=== PATIENT | female | born 1970 | race Caucasian/White ===

== ENCOUNTER 2016-11-12 18:42 | Emergency (ER) | payer OTHER ==
[~2016-11-12] VITALS: Ht 160 cm; Wt 80.1 kg
[~2016-11-12 18:42] MED LIST: ONDA4TAB7 SL
[2016-11-12 18:54] VITALS: TEMP 37.2; Ht 160 cm; Wt 80.1 kg
[2016-11-12] MEDS ORDERED: SODIUM CHLORIDE 0.9% 1000ML 1,000 ML IV STA (19:17)
[2016-11-12] MEDS ORDERED: KETOROLAC TROMETHAMINE 30 MG/ML VIAL IV STA (19:17)
[2016-11-12] MEDS ORDERED: ONDANSETRON INJ 2 MG/ML 2 ML VIAL IV STA (19:17)
[2016-11-12] MEDS ORDERED: FENTANYL CITRATE INJ 50 MCG/1 ML 2 ML VIAL IV PRN (19:30)
[2016-11-12 19:53] LABS: BASO % 0.1 %; BASO ABS # 0.03 K/uL (0-0.2); COMPLETE YES; EOS % 0.3 %; HEMATOCRIT 45.4 % (37-47); IG% 0.3 %; LYMPH % 4.8 %; MEAN CELL VOLUME 91.5 fL (80-100); MEAN CORPUSCULAR HEMOGLOBIN 33.3 pg (25-34); MEAN CORPUSCULAR HGB CONC 36.3 g/dl (32-36); MEAN PLATELET VOLUME 10.4 fL (7.4-10.4); MONO % 7.1 %; NEUT % 87.4 %; PLATELET COUNT 301 K/uL (130-400); RED BLOOD COUNT 4.96 M/uL (4.2-5.4); WHITE BLOOD COUNT 20.62 K/uL (4.8-10.8)
[2016-11-12 20:08] LABS: URINE APPEARANCE CLOUDY (CLEAR); URINE BILIRUBIN NEG (NEG); URINE COLOR YELLOW; URINE EPITHELIAL CELL AUTO >30 /lpf (0-5); URINE NITRITE NEG (NEG); URINE SPECIFIC GRAVITY 1.032 (1.000-1.030); UROBILINOGEN NEG (NEG); ZZUR CULT IF INDIC CLEAN CATCH YES
[2016-11-12 20:09] LABS: ALT/SGPT 15 U/L (12-78); BLOOD UREA NITROGEN 14 mg/dl (7-18); BUN/CREATININE RATIO 17.6 (10-20); CALCIUM 9.8 mg/dl (8.5-10.1); CARBON DIOXIDE 17 mmol/L (21-32); CHLORIDE 108 mmol/L (98-107); CREATININE 0.82 mg/dl (0.60-1.20); GLUCOSE 92 mg/dl (70-99); POTASSIUM 3.9 mmol/L (3.5-5.1); SODIUM 141 mmol/L (136-145)
[2016-11-12 20:12] LABS: ALKALINE PHOSPHATASE 87 U/L (45-117); AST/SGOT 11 U/L (15-37)
--- NOTE | 2016-11-12 20:12 | DIAGNOSTIC IMAGING REPORT ---
ABDOMEN AND PELVIS CT WITHOUT CONTRAST CT DOSE: 579.02 mGy.cm HISTORY: Pain ABDOMINAL PAIN/GI TECHNIQUE: Multiaxial CT images of the abdomen and pelvis were performed without contrast. COMPARISON STUDY: None. FINDINGS: The lung bases are clear. The unenhanced liver, spleen, gallbladder, pancreas, kidneys, and adrenal glands are within normal limits. No bowel wall thickening or obstruction. The pelvic organs are unremarkable. No suspicious lytic or blastic osseous lesions. The appendix is suboptimally seen no there is no significant right lower quadrant or pericecal inflammatory process. No evidence for an obstructing urinary tract calculus. Bladder is midline. IMPRESSION: No significant abnormality identified within the abdomen or pelvis. Electronically signed by: Sekou Lee M.D. 11/12/2016 8:11 PM Dictated Date/Time: 11/12/2016 8:05 PM
[2016-11-12 20:14] LABS: MANUAL MICROSCOPIC REQUIRED? NO; REVIEW REQ? YES
[2016-11-12 20:33] LABS: URINE MUCUS PRESENT (NONE PRSENT)
--- NOTE | 2016-11-12 20:52 | DIAGNOSTIC IMAGING REPORT ---
ABDOMEN 2VIEW W/PA CHEST RTN CLINICAL HISTORY: ABDOMINAL PAIN/GI nausea COMPARISON STUDY: No previous studies for comparison. FINDINGS: Lungs are considered clear. No evidence for cardiac enlargement. Mild gastric distention. Nonobstructive bowel pattern. IMPRESSION: Mild gastric distention. Otherwise negative study Electronically signed by: Sekou Lee M.D. 11/12/2016 8:51 PM Dictated Date/Time: 11/12/2016 8:50 PM
--- NOTE | 2016-11-12 21:11 | EMERGENCY ROOM VISIT NOTE ---
History Report prepared by Ryan: Tita Zhang Under the Supervision of: Dr. Kavin Washburn D.O. First contact with patient: 19:12 Chief Complaint: GI ASSESSMENT Stated Complaint: BLOATING, DIARRHEA, STOMACH PAIN, VOMITING History of Present Illness The patient is a 46 year old female who presents to the Emergency Room for a GI assessment. The patient felt fine yesterday and had normal bowel movements yesterday. This morning the patient felt fine when she woke up. She exercised and ate a bowl of [employer] cereal. About 1 hour after eating she started feeling burning pain in her throat. She became nauseated and had 1 episode of vomiting. Twenty minutes later she developed upper abdominal pain and abdominal bloating. This has persisted throughout the day. She states, "I feel really full , like I have this enormous weight in my belly." She has had multiple bowel movements today that she states are just water. The patient states that her abdominal pain is waxing and waning. She feels heaviness in her chest and she still feels nauseated. She has never had symptoms like this before. The patient denies any history of abdominal surgeries or any chance of . She was recently on antibiotics for strep throat. Source of History: patient Onset: this morning Position: abdomen Quality: other (bloating) Timing: constant Modifying Factors (Worsening): eating Associated Symptoms: + chest pain (heaviness), + diarrhea (watery), + nausea , + vomiting Review of Systems See HPI for pertinent positives & negatives. A total of 10 systems reviewed and were otherwise negative. Past Medical & Surgical Medical Problems: (1) Knee pain Surgical Problems: (1) History of knee surgery Family History No pertinent history stated. Social History Smoking Status: Never Smoker Alcohol Use: none Drug Use: none Marital Status: Housing Status: lives with family Occupation Status: employed Current/Historical Medications No Active Prescriptions or Reported Meds Allergies Coded Allergies: No Known Allergies (Unverified , 11/12/16) Physical Exam Vital Signs Date Time Temp Pulse Resp B/P Pulse Ox O2 Delivery O2 Flow Rate FiO2 11/12/16 21:00 102 20 161/111 99 Room Air 11/12/16 18:54 37.2 113 18 156/106 98 Room Air Physical Exam CONSTITUTIONAL/VITAL SIGNS: Reviewed / noted above. GENERAL: Non-toxic in appearance. INTEGUMENTARY: Warm, dry, and [employer]. HEAD: Normocephalic. EYES: without scleral icterus or trauma. ENT/OROPHARYNX: clear and moist. LYMPHADENOPATHY/NECK: Is supple without lymphadenopathy or meningismus. RESPIRATORY: Lungs clear and equal. CARDIOVASCULAR: Regular rate and rhythm. GI/ABDOMEN: Soft distended with mild epigastric tenderness. No organomegaly or pulsatile mass. No rebound or guarding. Decreased bowel sounds. EXTREMITIES: Warm and well perfused. BACK: No CVA tenderness. NEUROLOGICAL: Intact without focal deficits. PSYCHIATRIC: normal affect. MUSCULOSKELETAL: Normally developed with good muscle tone. Medical Decision & Procedures ER Provider Diagnostic Interpretation: Radiology results as stated below per my review and radiologist interpretation: ABDOMEN 2VIEW W/PA CHEST RTN CLINICAL HISTORY: ABDOMINAL PAIN/GI nausea COMPARISON STUDY: No previous studies for comparison. FINDINGS: Lungs are considered clear. No evidence for cardiac enlargement. Mild gastric distention. Nonobstructive bowel pattern. IMPRESSION: Mild gastric distention. Otherwise negative study Electronically signed by: Sekou Lee M.D. 11/12/2016 8:51 PM Dictated Date/Time: 11/12/2016 8:50 PM ABDOMEN AND PELVIS CT WITHOUT CONTRAST CT DOSE: 579.02 mGy.cm HISTORY: Pain ABDOMINAL PAIN/GI TECHNIQUE: Multiaxial CT images of the abdomen and pelvis were performed without contrast. COMPARISON STUDY: None. FINDINGS: The lung bases are clear. The unenhanced liver, spleen, gallbladder, pancreas, kidneys, and adrenal glands are within normal limits. No bowel wall thickening or obstruction. The pelvic organs are unremarkable. No suspicious lytic or blastic osseous lesions. The appendix is suboptimally seen no there is no significant right lower quadrant or pericecal inflammatory process. No evidence for an obstructing urinary tract calculus. Bladder is midline. IMPRESSION: No significant abnormality identified within the abdomen or pelvis. Electronically signed by: Sekou Lee M.D. 11/12/2016 8:11 PM Dictated Date/Time: 11/12/2016 8:05 PM Laboratory Results 11/12/16 19:40 Red Blood Count 4.96, Mean Corpuscular Volume 91.5, Mean Corpuscular Hemoglobin 33.3, Mean Corpuscular Hemoglobin Concent 36.3, Mean Platelet Volume 10.4, Neutrophils (%) (Auto) 87.4, Lymphocytes (%) (Auto) 4.8, Monocytes (%) (Auto) 7.1, Eosinophils (%) (Auto) 0.3, Basophils (%) (Auto) 0.1, Neutrophils # (Auto) 17.99, Lymphocytes # (Auto) 1.00, Monocytes # (Auto) 1.47, Eosinophils # (Auto) 0.07, Basophils # (Auto) 0.03 11/12/16 19:40 Test 11/12/16 19:40 11/12/16 19:50 White Blood Count 20.62 K/uL (4.8-10.8) Red Blood Count 4.96 M/uL (4.2-5.4) Hemoglobin 16.5 g/dL (12.0-16.0) Hematocrit 45.4 % (37-47) Mean Corpuscular Volume 91.5 fL (80-100) Mean Corpuscular Hemoglobin 33.3 pg (25-34) Mean Corpuscular Hemoglobin Concent 36.3 g/dl (32-36) Platelet Count 301 K/uL (130-400) Mean Platelet Volume 10.4 fL (7.4-10.4) Neutrophils (%) (Auto) 87.4 % Lymphocytes (%) (Auto) 4.8 % Monocytes (%) (Auto) 7.1 % Eosinophils (%) (Auto) 0.3 % Basophils (%) (Auto) 0.1 % Neutrophils # (Auto) 17.99 K/uL (1.4-6.5) Lymphocytes # (Auto) 1.00 K/uL (1.2-3.4) Monocytes # (Auto) 1.47 K/uL (0.11-0.59) Eosinophils # (Auto) 0.07 K/uL (0-0.5) Basophils # (Auto) 0.03 K/uL (0-0.2) RDW Standard Deviation 43.6 fL (36.4-46.3) RDW Coefficient of Variation 13.2 % (11.5-14.5) Immature Granulocyte % (Auto) 0.3 % Immature Granulocyte # (Auto) 0.06 K/uL (0.00-0.02) Anion Gap 16.0 mmol/L (3-11) Est Creatinine Clear Calc Drug Dose 85.9 ml/min Estimated GFR () 99.5 Estimated GFR (Non- 85.8 BUN/Creatinine Ratio 17.6 (10-20) Calcium Level 9.8 mg/dl (8.5-10.1) Total Bilirubin 0.5 mg/dl (0.2-1) Direct Bilirubin < 0.1 mg/dl (0-0.2) Aspartate Amino Transf (AST/SGOT) 11 U/L (15-37) Alanine Aminotransferase (ALT/SGPT) 15 U/L (12-78) Alkaline Phosphatase 87 U/L (45-117) Total Protein 8.5 gm/dl (6.4-8.2) Albumin 4.1 gm/dl (3.4-5.0) Lipase 99 U/L (73-393) Urine Color YELLOW Urine Appearance CLOUDY (CLEAR) Urine pH 5.0 (4.5-7.5) Urine Specific [place] 1.032 (1.000-1.030) Urine Protein NEG (NEG) Urine Glucose (UA) NEG (NEG) Urine Ketones 3+ (NEG) Urine Occult Blood 3+ (NEG) Urine Nitrite NEG (NEG) Urine Bilirubin NEG (NEG) Urine Urobilinogen NEG (NEG) Urine Leukocyte Esterase TRACE (NEG) Urine WBC (Auto) 1-5 /hpf (0-5) Urine RBC (Auto) 5-10 /hpf (0-4) Urine Hyaline Casts (Auto) 1-5 /lpf (0-5) Urine Epithelial Cells (Auto) >30 /lpf (0-5) Urine Bacteria (Auto) 1+ (NEG) Urine Mucus PRESENT (NONE PRSENT) Urine Test NEG (NEG) Laboratory results as stated above per my review. Medications Administered Medications (Trade) Dose Ordered Sig/Irving Route Start Time Stop Time Status Last Admin Dose Admin Sodium Chloride (Nss 1000ml) 1,000 ml @ 999 mls/hr Q1H1M STAT IV 11/12/16 19:17 11/12/16 20:17 DC 11/12/16 19:46 999 MLS/HR Ondansetron HCl (Zofran Inj) 4 mg NOW STAT IV 11/12/16 19:17 11/12/16 19:20 DC 11/12/16 19:47 4 MG Fentanyl Citrate (Fentanyl Inj) 50 mcg Q1H PRN IV 11/12/16 19:30 11/26/16 19:29 11/12/16 21:11 50 MCG Ketorolac Tromethamine (Toradol Inj) 30 mg NOW STAT IV 11/12/16 19:17 11/12/16 19:20 DC 11/12/16 19:47 30 MG ED Course 1911: Previous medical records were reviewed. The patient was evaluated in room B12B. A complete history and physical examination was performed. 1916: Toradol 30 mg IV, Zofran 4 mg IV, NSS 1000 ml @ 999 mls/hr IV 1929: Fentanyl Citrate 50 mcg IV - PRN 2111: I reassessed the patient at this time. She is feeling better and resting comfortably. I discussed the results and treatment plan with the patient. I answered all pertaining questions that she had. She expressed understanding and verbalized agreement. The patient will be discharged home. Medical Decision Differential considered: pancreatitis, hepatitis, or acute cholecystitis, AAA, UTI, pyelonephritis, kidney stones, appendicitis, diverticulitis, shingles, bowel obstruction mesenteric ischemia, intussusception,hernia, ovarian torsion, ruptured ovarian cyst, ectopic , . This is a 46-year-old female who presents to the ED with a chief complaint of abdominal bloating and distention as well as some intermittent abdominal cramps. Further details noted above. Her symptoms started about 1 hour after eating a bowl of cereal at 9:30 AM. She had one episode of vomiting. She states that she had an episode of watery diarrhea this afternoon. Her exam reveals bloated abdomen is mildly tender in epigastric area. CT scan her abdomen and pelvis did not show any acute process. A chest x-ray was negative for acute disease. Abdominal x-ray reveals some gastric distention. White blood count was 20. Complete metabolic panel is normal. Lipase is negative. test was negative. Urine does not reveal obvious infection. It appears contaminated. The patient was treated with IV fluids, IV fentanyl, IV Toradol and IV Zofran. The patient was told the results. She is felt to be stable for discharge and outpatient follow-up. Zofran home pack was provided. She was told to return for any worsening or new concerns. Impression Primary Impression: Abdominal pain Additional Impression: Nausea vomiting and diarrhea Scribe Attestation The scribe's documentation has been prepared under my direction and personally reviewed by me in its entirety. I confirm that the note above accurately reflects all work, treatment, procedures, and medical decision making performed by me. Departure Information Dispostion Home / Self-Care Prescriptions Ondasetron Odt (ZOFRAN ODT) 4 Mg Tab 4 MG SL Q6H for Nausea, #15 TAB Prov: Kavin Washburn D.O. 11/12/16 Referrals Darin Muller (PCP) Forms HOME CARE DOCUMENTATION FORM, IMPORTANT VISIT INFORMATION Patient Instructions ED Diet Vomiting Diarrhea, My [facility] Additional Instructions Follow-up with your doctor for further care and evaluation in 1-2 days. Return to the emergency department for worsening or new symptoms or any concerns. You have been examined and treated today on an emergency basis only. This is not a substitute for, or an effort to provide, complete comprehensive medical care. It is impossible to recognize and treat all injuries or illnesses in a single emergency department visit. It is therefore important that you follow up closely with your doctor. Call as soon as possible for an appointment. Zofran: Allow one tablet to dissolve under the tongue every 6 hours as needed for nausea or vomiting. Problem Qualifiers Primary Impression: Abdominal pain Abdominal location: epigastric Qualified Codes: R10.13 - Epigastric pain
[2016-11-12] MEDS ORDERED: ONDA4TAB10 SL (21:18)
[2016-11-12] MEDS ORDERED: ONDANSETRON HOME PACK 4MG OD TAB PO ONE (21:30)
[2016-11-12 21:36] VITALS: BP 136/107; PULSE 102; O2SAT 97
== END 2016-11-12 21:37 | disposition home or self-care (01) ==
LOC: C.EDB 18:44
DX: R10.13 Epigastric pain (principal); R11.2 Nausea with vomiting, unspecified; R19.7 Diarrhea, unspecified; Z98.890 Other specified postprocedural states